=== PATIENT | female | born 1985 | race African-American/Black ===

== ENCOUNTER 2017-05-21 12:52 | Emergency (ER) | payer SELFPAY ==
[2017-05-21 13:01] VITALS: BP 148/96; BMI 38.0
[2017-05-21] MEDS ORDERED: ADACEL TDaP IM ONE ×2 (13:23→13:28)
[2017-05-21] MEDS ORDERED: HYDROGEN PEROXIDE 3% ONE (13:27)
[2017-05-21] MEDS ORDERED: XYLOCAINE 1 % (PLAIN) ONE (13:27)
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
[2017-05-21] MEDS ORDERED: BACITRACIN ZINC ONE (14:16)
== END 2017-05-21 14:29 | disposition home or self-care (01) ==
LOC: ER 13:08
PROC: 0XQJ0ZZ Repair Right Hand, Open Approach (ICD-10-PCS; principal; 2017-05-21)
DX: S61.411A Laceration without foreign body of right hand, initial encounter (principal); Y04.0XXA Assault by unarmed brawl or fight, initial encounter; Y92.9 Unspecified place or not applicable
CPT/HCPCS: 12001; 90471; 99282; J2001